=== PATIENT | male | born 1990 | race African-American/Black ===

== ENCOUNTER 2018-09-20 07:23 | Emergency (ER) | payer SELFPAY ==
[~2018-09-20] VITALS: Ht 175.3 cm; Wt 89.5 kg
[2018-09-20] MEDS ORDERED: IBUPROFEN 800 MG TABLET PO ONE (08:15)
[2018-09-20 08:37] VITALS: BP 126/75
== END 2018-09-20 08:38 | disposition home or self-care (01) ==
LOC: EMS 07:24
DX: S13.4XXA Sprain of ligaments of cervical spine, initial encounter (principal); F12.90 Cannabis use, unspecified, uncomplicated; V43.52XA Car driver injured in collision with other type car in traffic accident, initial encounter; Y93.89 Activity, other specified; Y92.89 Other specified places as the place of occurrence of the external cause; Y99.8 Other external cause status

== ENCOUNTER 2020-02-28 14:41 | Emergency (ER) | payer OTHER ==
[~2020-02-28] VITALS: Ht 175.3 cm; Wt 100.0 kg
[2020-02-28 14:43] VITALS: BP 124/78
== END 2020-02-28 15:32 | disposition home or self-care (01) ==
LOC: EMS 14:41
DX: L03.211 Cellulitis of face (principal); F12.90 Cannabis use, unspecified, uncomplicated